=== PATIENT | female | born 1995 | race African-American/Black ===

== ENCOUNTER 2016-05-09 17:30 | Emergency (ER) | payer OTHER ==
[~2016-05-09] VITALS: Ht 167.6 cm; Wt 55.0 kg
[~2016-05-09 17:30] MED LIST: MACR100C PO; NEXP68IM PO; ZOFR4TAB3 SL
[2016-05-09 17:32] VITALS: BP 126/71; PULSE 70; RESP 16; TEMP 98.1; O2SAT 100
[2016-05-09 17:39] VITALS: BP 151/78; PULSE 68; RESP 16; TEMP 98; O2SAT 100
[2016-05-09] MEDS ORDERED: ETON1IMP I-DERMAL (17:42)
--- NOTE | 2016-05-09 17:53 | PD ---
HPI Chief Complaint: Tow Motor Driver Problem Time Seen by Provider: 17:38 Travel History International Travel<30 days: No Contact w/Intl Traveler<30days: No Traveled to known affect area: No History of Present Illness HPI Patient's 21-year-old female presents emergency department for evaluation of left arm pain associated with an Implanon device. Patient states that she had the Implanon placed approximately year ago. She states she called appear to see if we could take it out and she was eyes buys [id number] come in and be seen. Patient states that her arm recently turned green from the Implanon device. She denies any fever denies any nausea vomiting chest pain shortness of breath. Denies any vaginal bleeding vaginal discharge. Patient states that device and hurting for approximately a month. PFSH Past Medical History Medical History: Denies Significant Hx Respiratory: Yes (bronchitis) Tetanus Vaccination: Unknown Influenza Vaccination: No ?: Not Past Surgical History Tonsillectomy: Yes Social History Alcohol Use: No Tobacco Use: No Substance Use: No Allergies-Medications (Allergen,Severity, Reaction): Uncoded Allergies: nickel (Allergy, Intermediate, 11/05/15) Reported Meds & Prescriptions Reported Meds & Active Scripts Active Reported Nexplanon Implant (Etonogestrel Implant) 68 Mg Imp 68 Mg I-DERMAL ONCE Review of Systems Except as stated in HPI: all other systems reviewed are Neg Physical Exam Narrative GENERAL: Well-nourished, well-developed patient. SKIN: Warm and dry. There is no hematoma no tenderness no abscess and no cellulitis associated with the Implanon device in the left upper extremity. HEAD: Normocephalic. EYES: No scleral icterus. No injection or drainage. NECK: Supple, trachea midline. No JVD or lymphadenopathy. CARDIOVASCULAR: Regular rate and rhythm without murmurs, gallops, or rubs. RESPIRATORY: Breath sounds equal bilaterally. No accessory muscle use. GASTROINTESTINAL: Abdomen soft, non-tender, nondistended. MUSCULOSKELETAL: No cyanosis, or edema. Pulses motor and sensory intact distally in all 4 extremities. Full nontender range of motion in all extremities. The perhaps is a very minimal amount of tenderness associated with the Implanon device. BACK: Nontender without obvious deformity. No CVA tenderness. Data Data Last Documented VS Vital Signs Date Time Temp Pulse Resp B/P Pulse Ox O2 Delivery O2 Flow Rate FiO2 2/26/17 17:43 67 15 100 Room Air 05/09/16 17:39 98.0 151/78 MDM Medical Decision Making Medical Screen Exam Complete: Yes Emergency Medical Condition: Yes Differential Diagnosis Left arm pain, abscess of biomedical service engineer extremely likely, infected biomedical service engineer extremely unlikely, sub-cutaneous hematoma extremely unlikely. Narrative Course Discussed with the patient that there is no emergent indication to remove for Implanon at this time. Discussion is to follow-up with an OPERATING ROOM TECH or primary care physician or the health department. I have explained to the patient that at this point I do not feel the device needs to be emergently removed. Further I am not trained to remove the device and there is significant risk including brachial artery injury which are not willing to the rib patient risk for. Discussion is follow-up with a physician who is trained to remove these devices for further management. Patient is upset with this examination was excepting. She was discharged in emergency department. She was offered pain medicine in the ER and declined. Diagnosis Primary Impression: Arm pain Qualified Code: M79.602 - Pain of left upper extremity Referrals: Charo Holguin MD [facility] Disposition: 01 DISCHARGE HOME Condition: Stable Tico Thomason MD May 09, 2016 17:53
== END 2016-05-09 18:34 | disposition home or self-care (01) ==
LOC: NEPA 17:30
DX: M79.602 Pain in left arm (principal)
CPT/HCPCS: 99283